=== PATIENT | male | born 1995 | race Asian ===

== ENCOUNTER 2021-06-27 13:52 | Emergency (ER) | payer OTHER ==
[~2021-06-27] VITALS: Ht 180.3 cm; Wt 85.3 kg
[2021-06-27 14:00] VITALS: BP 137/71
--- NOTE | 2021-06-27 14:41 | NUR ---
LABS DRAWN AND HANDED TO [employer] HELPER
--- NOTE | 2021-06-27 14:45 | NUR ---
Patient discharged with v/s stable. Written and verbal after care instructions ABOUT EXPOSURE TO BODY FLUIDS given and explained. Patient verbalized understanding. Ambulatory with steady gait. All questions addressed prior to discharge. Advised to follow up with PMD.
[2021-06-29 08:08] LABS: HEPATITIS B SURFACE ANTIGEN Negative (Negative)
== END 2021-06-27 14:45 | disposition home or self-care (01) ==
LOC: MED 13:52
DX: Z77.21 Contact with and (suspected) exposure to potentially hazardous body fluids (principal)
CPT/HCPCS: 36415; 86592; 86702; 86803; 87340; 99283